=== PATIENT | male | born 2000 | race Two or more races ===

== ENCOUNTER 2022-08-05 14:18 | Emergency (ER) | payer OTHER ==
[~2022-08-05] VITALS: Ht 162.6 cm; Wt 57.6 kg
== END 2022-08-05 18:56 | disposition home or self-care (01) ==
LOC: ER 14:18
DX: R31.9 Hematuria, unspecified (principal); N13.30 Unspecified hydronephrosis

== ENCOUNTER 2022-09-26 15:30 | Outpatient (CLI) | payer OTHER | END 2022-09-26 15:36 | disposition home or self-care (01) | LOC: SONOGRAMA 15:30 | DX: R31.0 Gross hematuria (principal) ==